=== PATIENT | male | born 1995 | race Two or more races ===

== ENCOUNTER 2025-02-23 23:53 | Emergency (ER) | payer BC ==
[2025-02-24 00:02] VITALS: RESP 18
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
[2025-02-24] MEDS: AMOXIC-POT CLAV 875-125MG 1 EACH TAB PO STA (00:59)
[2025-02-24] MEDS: DIPH,PERTUS(ACELL)TETVAC-LF 0.5 ML VIAL IM ONE (01:00)
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
[2025-02-24 02:01] VITALS: BP 126/73; PULSE 71; TEMP 99.4
== END 2025-02-24 03:54 | disposition home or self-care (01) ==
LOC: SUPCPDRO 23:53 → EC 23:53
DX: S00.511A Abrasion of lip, initial encounter (principal); S00.81XA Abrasion of other part of head, initial encounter; Z23 Encounter for immunization; Y04.0XXA Assault by unarmed brawl or fight, initial encounter
CPT/HCPCS: 70450; 72125; 90471; 90715; 99284